=== PATIENT | male | born 1990 | race Caucasian/White ===

== ENCOUNTER 2016-09-11 04:30 | Emergency (ER) | payer OTHER, MEDICAID ==
[2016-09-11 04:39] VITALS: BP 133/90
--- NOTE | 2016-09-11 05:31 | EDM.PDOC ---
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 He was wearing a hard hat and safety goggles, but they were knocked off. The patient was apparently knocked unconscious for about 10 minutes, according to witnesses. He now presents with 4 lacerations to his left episcopalian area, complaining of a headache and left neck pain. He is in a cervical collar. Allergies/ADRs: Allergies No Known Allergies Allergy (Verified 08/19/16 21:04 CDT) Home Medications: Ambulatory Orders . [No Known Home Meds] 08/19/16 [Confirmed 08/19/16] Past Medical History - Past Surgical History GI Surgical History: Reports: Hernia, inguinal (right) Social & Family History - Family History Family Medical History: Noncontributory - Tobacco Use Smoking Status *Q: Current Every Day Smoker Years of Tobacco use: 9 Packs/Tins Daily: 0.3 - Caffeine Use Caffeine Use: Reports: None - Alcohol Use Alcohol Use History: Yes Alcohol Use Frequency: Socially - Recreational Drug Use Recreational Drug Use: No - Living Situation & Occupation Living situation: Reports: single, other (with friends) Occupation: employed (Chronicity) Review of Systems - Review of Systems Review Of Systems: See Below Constitutional: Reports: no symptoms Eyes: Reports: no symptoms Ears: Reports: no symptoms Nose: Reports: no symptoms Mouth/Throat: Reports: no symptoms Respiratory: Reports: No Symptoms Cardiovascular: Reports: no symptoms GI/Abdominal: Reports: No symptoms Genitourinary: Reports: no symptoms Musculoskeletal: Reports: no symptoms Skin: Reports: no symptoms Neurological: Reports: No Symptoms Psychiatric: Reports: no symptoms ED EXAM, TRAUMA (MAJOR/MULTI) - Physical Exam Exam: See Below Exam Limited By: No limitations General Appearance: alert, WD/WN, no apparent distress Head: normocephalic, facial ecchymosis, facial lacerations (3 cm linear laceration to the left episcopalian area, with associated swelling and ecchymosis. 2.5 cm curvilinear laceration inferior to the 3 cm laceration. 1.5 cm linear laceration just superior to the left eyebrow. 2 cm linear laceration within the lateral aspect of the left eyebrow.), facial swelling Eyes: bilateral eye: EOMI, normal inspection, PERRL Ears: normal external exam, normal canal, hearing grossly normal, normal TMs Nose: normal inspection, normal mucousa, no blood Throat/Mouth: Normal inspection, Normal lips, Normal teeth, Normal gums, Normal oropharynx, Normal voice, No airway compromise Neck: other (Cervical collar kept in place) Cardiovascular: normal peripheral pulses, regular rate, rhythm, no edema, no gallop, no JVD, no murmur, no rub Respiratory/Chest: no respiratory distress, lungs clear, normal breath sounds, no accessory muscle use GI/Abdominal: normal bowel sounds, soft, non tender, no organomegaly, no distention, no abnormal bruit, no mass (Male) Exam: Deferred Rectal (Males) Exam: Deferred Back: full range of motion, normal inspection, non-tender Extremities: no evidence of injury, normal range of motion, non-tender, no pedal edema, pelvis stable Neurologic: creative services director II-XII nml as tested, no motor/sensory deficits, alert, oriented x 3 Skin: Normal color, Warm/dry ED TRAUMA PROCEDURES - Laceration/Wound Repair Left Head Lac/wound length in cm: 3.0 Appearance: subcutaneous, linear, clean Distal NVT: neuro & vascular intact Anesthetic type: topical (LET) Skin prep: providone-iodine (betadine), saline Exploration/Debridement/Repair: wound explored, in a bloodless field, explored to base, no foreign material found, wound margins revised Closed with: sutures Suture size: 3-0 # of sutures: 7 Suture type: nylon, Running Sterile dressing applied: none Tetanus status addressed: Yes Complications: No Course - Vital Signs Last Recorded V/S: Last Vital Signs Temp 36.4 C 09/11/16 04:35 Pulse 78 09/11/16 06:55 Resp 16 09/11/16 06:55 BP 133/90 09/11/16 04:35 Pulse Ox 100 09/11/16 06:55 - Orders/Labs/Meds Orders: Active Orders 24 hr Category Date Time Status Cervical Spine wo Cont [CT] Stat Exams 09/11/16 04:55 Taken Head wo Cont [CT] Stat Exams 09/11/16 04:55 Taken Meds: Medications Discontinued Medications Generic Name Dose Route Start Last Admin Trade Name Mary PRN Reason Stop Dose Admin Bupivacaine HCl 10 ml 09/11/16 05:38 09/11/16 06:58 Sensorcaine-Mpf 0.5% INJECT 09/11/16 05:39 10 ml ONETIME ONE Administration Lidocaine/Epinephrine 20 ml 09/11/16 05:38 09/11/16 06:58 Xylocaine 1% With Epinephrine 1:100,000 INJECT 09/11/16 05:39 20 ml ONETIME ONE Administration Lidocaine/Tetracaine 5 ml 09/11/16 05:37 09/11/16 05:45 Let Soln TOP 09/11/16 05:38 5 ml ONETIME STA Administration - Radiology Interpretation Free Text/Narrative:: CT of the head without contrast is read by [facility] as "No acute cerebral hemorrhage or edema." CT of the cervical spine without contrast is read by [facility] as "No acute fracture." - Re-Assessments/Exams Free Text/Narrative Re-Assessment/Exam: 09/11/16 07:03 The patient's for lacerations were closed with a total of 17 sutures. The 2 most superior lacerations, the 3 cm and 2.5 cm lacerations, were closed with running sutures, while the 2 lower lacerations, via his eyebrow, were closed with simple interrupted sutures. Management of the wounds was discussed with the patient, and the sutures should be ready for removal on or about Saturday, . I will refer him to the clinic, should he need followup. Departure - Departure Time of Disposition: 07:05 Disposition: Home, Self-Care 01 Condition: good Clinical Impression: Facial laceration, Head injury with loss of consciousness Referrals: PCP,None [Primary Care Provider] - Celena Toro PA-C [Physician Cat Scan Technologist] - Forms: ED Department Discharge Additional Instructions: You were seen in the emergency room after being struck on the head by a pipe, knocking you unconscious, and causing four lacerations to the left side of your head. Workup in the ER included CT scans of your head and neck. Both CT scans returned as normal. No broken bones, and no injury. Your 4 lacerations were sutured with a total of 17 stitches. Keep the wounds clean with ordinary soap and water. You may shower as normal, however, we do not want you to soak the wounds, such as with swimming or in the bath. We DO NOT recommend you apply antibiotic ointment to the wounds. You may apply a clean dressing, if you like. This may help pad the wounds if you are wearing a hard hat. Take [id number] ibuprofen as needed for discomfort. The sutures should be ready for removal by 09/21/2016. This can be done at a walk-in clinic, your doctor's office, or in the ER. You may followup with Celena Toro in the clinic, as needed. If any other problems, please do not hesitate to return to the ER. - My Orders Last 24 Hours: My Active Orders 09/11/16 04:55 Cervical Spine wo Cont [CT] Stat Head wo Cont [CT] Stat - Assessment/Plan Last 24 Hours: My Active Orders 09/11/16 04:55 Cervical Spine wo Cont [CT] Stat Head wo Cont [CT] Stat ED LACERATION/WOUND & NADEEN PROC - Laceration/Wound Repair Left Head Lac/wound length in cm: 2.5 Appearance: subcutaneous, linear, clean Distal NVT: neuro & vascular intact Anesthetic type: topical (LET) Skin prep: providone-iodine (betadine), saline Exploration/Debridement/Repair: wound explored, in a bloodless field, explored to base, no foreign material found, wound margins revised Closed with: sutures Suture size: 3-0 # of sutures: 4 Suture type: nylon, interrupted, simple Sterile dressing applied: none Tetanus status addressed: Yes Complications: No ED LACERATION/WOUND PROCEDURES - Laceration/Wound Repair Left Head Laceration/wound length in cm: 1.5 Appearance: subcutaneous, linear, clean Distal NVT: neuro & vascular intact Anesthetic type: local (LET) Local anesthesia - Lidocaine (Xylocaine): 1% with epi Local anesthesia - Bupivicaine (Marcaine): 0.5% plain Local anesthetic volume: 1cc Skin prep: providone-iodine (betadine), saline Wound exploration, debridement, revision: wound explored, in a bloodless field, explored to base, no foreign material found, wound margins revised Suture size: 3-0 # of sutures: 2 Suture type: nylon, interrupted, simple Sterile dressing applied: none Tetanus status addressed: Yes Complications: none ED LACERATION PROCEDURES - Laceration/Wound Repair Left Head Lac/wound length in cm: 2.0 Appearance: subcutaneous, linear Distal NVT: neuro & vascular intact Anesthetic type: local Local anesthesia - Lidocaine (Xylocaine): 1% with epi Local anesthesia - Bupivicaine (Marcaine): 0.5% plain Local anesthetic volume: 1cc Skin prep: providone-iodine (betadine), saline Exploration/Debridement/Repair: wound explored, in a bloodless field, explored to base, no foreign material found, wound margins revised Closed with: sutures Suture size: 3-0 # of sutures: 4 Suture type: nylon, interrupted, simple Sterile dressing applied: none Tetanus status addressed: Yes Complications: No
[2016-09-11] MEDS ORDERED: Lidocaine/EPINEPHrine/Tetracaine Soln 1 ML TOP STA (05:37)
[2016-09-11] MEDS ORDERED: Bupivacaine 0.5% 10 ML SDV INJECT ONE (05:38)
[2016-09-11] MEDS ORDERED: Lidocaine 1% with EPINEPHrine 1:100,000 20 ML MDV INJECT ONE (05:38)
[2016-09-11] MEDS ORDERED: Ibuprofen 600 MG Tab PO ONE (07:06)
--- NOTE | 2016-09-11 10:57 | CT ---
CT cervical spine Technique: Multiple axial sections were obtained from above C1 inferiorly to the bottom of T2. Reconstructed sagittal and coronal images were reviewed. Comparison: No previous cervical spine imaging. Findings: Mastoid sinuses and middle ear cavities are clear. Posterior skull base is intact. Vertebral body heights and disc spaces are maintained. Vertebral body heights and posterior arches are intact. No fracture is seen. No bony central or bony neural foraminal stenosis is seen. No abnormal subluxation is seen on the reconstructed sagittal images. Minimal mucosal thickening/small retention cyst seen within both maxillary sinuses. Impression: 1. Minimal sinus findings which are incidental. 2. CT study of the cervical spine is otherwise unremarkable. Diagnostic code #2 I agree with preliminary report issued by [employer] (preliminary report dictated on 09/11/16, 6:23 AM Central Time)
--- NOTE | 2016-09-11 10:57 | CT ---
Head CT Technique: Multiple axial sections through the brain were obtained. Intravenous contrast was not utilized. Comparison: No previous study. Findings: Ventricles along with basal cisterns and sulci over the convexities are within normal limits for the patient's age. No abnormal parenchymal densities are seen. No evidence of intracranial hemorrhage. No midline shift or mass effect is seen. Bone window settings were reviewed which show no discrete calvarial abnormality. Visualized paranasal sinuses are clear. Impression: 1. No abnormality identified on noncontrast head CT study. Diagnostic code #1 I agree with preliminary report issued by [employer] (preliminary report dictated on 09/11/16, 6:24 AM Central Time)
== END 2016-09-11 07:16 | disposition home or self-care (01) ==
LOC: JD.ED 04:30
DX: S01.81XA Laceration without foreign body of other part of head, initial encounter (principal); W22.8XXA Striking against or struck by other objects, initial encounter; Y92.65 Oil rig as the place of occurrence of the external cause; Y99.0 Civilian activity done for income or pay; F17.210 Nicotine dependence, cigarettes, uncomplicated
CPT/HCPCS: 12011; 12013; 70450; 72125; 99284; A9270; 12015